=== PATIENT | male | born 1975 | race Caucasian/White ===

== ENCOUNTER 2021-08-03 09:06 | Emergency (ER) | payer BC ==
[~2021-08-03] VITALS: Ht 170.2 cm; Wt 87.0 kg
[2021-08-03 09:58] VITALS: BP 142/92
== END 2021-08-03 12:53 | disposition home or self-care (01) ==
LOC: ER 09:07
DX: M79.672 Pain in left foot (principal); W19.XXXA Unspecified fall, initial encounter; Y93.89 Activity, other specified; Y92.89 Other specified places as the place of occurrence of the external cause; Y99.8 Other external cause status
CPT/HCPCS: 73590; 99283

== ENCOUNTER → 2022-11-22 | Outpatient (CLI) | payer BC ==
[2022-11-22 09:52] LABS: BASOPHILS % (AUTO) 0.8 % (0-1); BILIRUBIN,URINE NEGATIVE (Neg); CLARITY,URINE CLEAR (Clear); COLOR,URINE YELLOW (Yellow); EOSINOPHILS # (AUTO) 0.2 X10'3 (0-0.9); EOSINOPHILS % (AUTO) 3.9 % (0-6); GLUCOSE, URINE NEGATIVE (Neg); HEMATOCRIT 39.7 % (42.0-52.0); HEMOGLOBIN 13.4 g/dl (14.0-17.9); KETONES,URINE NEGATIVE (Neg); LEUKOCYTE ESTERASE ,URINE NEGATIVE (Neg); LYMPHOCYTES % (AUTO) 23.2 % (21-51); MEAN CORPUSCULAR HEMOGLOBIN 31.8 PG (27.0-31.0); MEAN CORPUSCULAR HGB CONC 33.6 g/dL (33.0-36.5); MEAN CORPUSCULAR VOLUME 94.7 FL (78-98); MEAN PLATELET VOLUME 8.3 FL (7.4-10.4); MONOCYTES # (AUTO) 0.4 X10'3 (0-0.9); MONOCYTES % (AUTO) 10.2 % (2-12); NEUTROPHILS # (AUTO) 2.7 X10'3 (1.8-7.7); NEUTROPHILS % (AUTO) 61.9 % (42-75); NITRITES, URINE NEGATIVE (Neg); OCCULT BLOOD,URINE NEGATIVE (Neg); PH,URINE 5.5 (4.8-8.0); PLATELET COUNT 216 X10'3 (140-440); PROTEIN,URINE NEGATIVE (Neg); RED CELL DISTRIBUTION WIDTH 12.3 % (11.5-14.5); UROBILINOGEN,URINE 0.2 E.U/dL (0.2-1.0); WHITE BLOOD COUNT 4.4 X10'3 (4.5-11.0)
[2022-11-22 09:53] LABS: TOTAL PROTEIN,URINE RANDOM 9.1 MG/DL; UA PROTEIN/CREATININE RATIO 0.11 mg/mg Cr (0-0.16)
[2022-11-22 09:58] LABS: UA COLLECTION TYPE CLN CATCH MIDSTREAM
[2022-11-22 10:03] LABS: % IRON SATURATION 28 % (11-46); IRON 90 UG/DL (53-167); TOTAL IRON BINDING CAPACITY 325 UG/DL (259-388)
[2022-11-22 10:34] LABS: ALBUMIN 4.2 G/DL (3.4-5.0); ANION GAP 8 (8-16); BLOOD UREA NITROGEN 26 MG/DL (7-18); BUN/CREATININE RATIO 15.5 (10.0-20.0); CALCIUM 9.5 MG/DL (8.5-10.1); CHLORIDE 100 MMOL/L (99-107); CREATININE 1.68 MG/DL (0.60-1.10); FERRITIN 509 NG/ML (26-388); GLUCOSE 98 MG/DL (70-104); MAGNESIUM 1.8 MG/DL (1.5-2.4); PHOSPHORUS 3.7 MG/DL (2.3-4.5); POTASSIUM 4.5 MMOL/L (3.5-5.1); SODIUM 135 MMOL/L (135-145); TOTAL CARBON DIOXIDE 27.1 MMOL/L (24-32); URIC ACID 6.7 MG/DL (3.5-7.2); eGFR 44 ML/MIN
[2022-11-22 11:14] LABS: HEMOGLOBIN A1C > 12.0 % (4.5-6.2)
[2022-11-23 15:03] LABS: VITAMIN D, 25-HYDROXY 38.2 ng/mL (30.0-100.0)
== END | disposition home or self-care (01) ==
LOC: LAB 08:43
PROVIDERS: ATTEND Nurse Practitioner Adult Health
DX: E11.22 Type 2 diabetes mellitus with diabetic chronic kidney disease (principal); N18.30 Chronic kidney disease, stage 3 unspecified; M10.9 Gout, unspecified; D63.1 Anemia in chronic kidney disease; D50.8 Other iron deficiency anemias; R94.4 Abnormal results of kidney function studies; E83.52 Hypercalcemia; R80.9 Proteinuria, unspecified; E83.40 Disorders of magnesium metabolism, unspecified; R82.79 Other abnormal findings on microbiological examination of urine; N39.0 Urinary tract infection, site not specified
CPT/HCPCS: 36415; 80069; 81003; 82306; 82570; 82728; 83036; 83540; 83550; 83735; 83970; 84156; 84550; 85025

== ENCOUNTER → 2023-01-03 | Outpatient (CLI) | payer BC ==
[2023-01-03 09:39] LABS: ALANINE AMINOTRANSFERASE 47 U/L (12-78); ALBUMIN 3.9 G/DL (3.4-5.0); ALBUMIN/GLOBULIN RATIO 1.1 (1.1-1.5); ALKALINE PHOSPHATASE 67 IU/L (46-116); ANION GAP 8 (8-16); ASPARTATE AMINO TRANSFERASE 37 U/L (10-37); BILIRUBIN,TOTAL 0.3 MG/DL (0.1-1.0); BLOOD UREA NITROGEN 25 MG/DL (7-18); BUN/CREATININE RATIO 14.9 (10.0-20.0); CALCIUM 8.9 MG/DL (8.5-10.1); CHLORIDE 99 MMOL/L (99-107); CHOL/HDL RATIO 3.9 (0.00-4.99); CHOLESTEROL 217 MG/DL (0-200); CREATININE 1.68 MG/DL (0.60-1.10); GLUCOSE 106 MG/DL (70-104); HDL CHOLESTEROL 56 MG/DL (35-60); LDL CHOLESTEROL 113 MG/DL (50-100); POTASSIUM 4.1 MMOL/L (3.5-5.1); SODIUM 132 MMOL/L (135-145); TOTAL CARBON DIOXIDE 25.3 MMOL/L (24-32); TOTAL PROTEIN 7.6 G/DL (6.4-8.2); TRIGLYCERIDES 190 MG/DL (20-135); eGFR 44 ML/MIN
== END | disposition home or self-care (01) ==
LOC: LAB 08:42
PROVIDERS: ATTEND Family Medicine
DX: I12.9 Hypertensive chronic kidney disease with stage 1 through stage 4 chronic kidney disease, or unspecified chronic kidney disease (principal); N18.31 Chronic kidney disease, stage 3a; R73.09 Other abnormal glucose
CPT/HCPCS: 36415; 80053; 80061

== ENCOUNTER 2023-03-03 10:10 | Outpatient (CLI) | payer BC | END 2023-03-03 23:59 | disposition home or self-care (01) | LOC: CARD DIAG 10:10 | PROVIDERS: ATTEND Internal Medicine Interventional Cardiology | DX: I08.8 Other rheumatic multiple valve diseases (principal); R06.02 Shortness of breath | CPT/HCPCS: 93306 ==

== ENCOUNTER 2023-03-06 08:52 | Outpatient (CLI) | payer BC ==
[2023-03-06 09:38] LABS: HEMOGLOBIN A1C 5.3 % (4.5-6.2)
[2023-03-06 09:42] LABS: THYROID STIMULATING HORMONE 2.71 ulU/ml (0.34-4.50)
== END 2023-03-06 23:59 | disposition home or self-care (01) ==
LOC: LAB 08:52
PROVIDERS: ATTEND Family Medicine
DX: R97.20 Elevated prostate specific antigen [PSA] (principal); R73.01 Impaired fasting glucose; R94.6 Abnormal results of thyroid function studies
CPT/HCPCS: 36415; 83036; 84153; 84443

== ENCOUNTER 2023-06-12 11:09 | Outpatient (CLI) | payer BC ==
[2023-06-12 11:41] LABS: BASOPHILS # (AUTO) 0.1 X10'3 (0-0.2); BASOPHILS % (AUTO) 0.7 % (0-1); EOSINOPHILS # (AUTO) 0.2 X10'3 (0-0.9); EOSINOPHILS % (AUTO) 2.1 % (0-6); HEMATOCRIT 38.3 % (42.0-52.0); HEMOGLOBIN 13.1 g/dl (14.0-17.9); LYMPHOCYTES # (AUTO) 0.9 X10'3 (1.1-4.8); LYMPHOCYTES % (AUTO) 10.9 % (21-51); MEAN CORPUSCULAR HEMOGLOBIN 31.6 PG (27.0-31.0); MEAN CORPUSCULAR HGB CONC 34.2 g/dL (33.0-36.5); MEAN CORPUSCULAR VOLUME 92.5 FL (78-98); MEAN PLATELET VOLUME 7.8 FL (7.4-10.4); MONOCYTES # (AUTO) 0.7 X10'3 (0-0.9); NEUTROPHILS # (AUTO) 6.7 X10'3 (1.8-7.7); NEUTROPHILS % (AUTO) 78.3 % (42-75); PLATELET COUNT 230 X10'3 (140-440); RED BLOOD COUNT 4.13 X10'6 (4.70-6.10); RED CELL DISTRIBUTION WIDTH 13.5 % (11.5-14.5); WHITE BLOOD COUNT 8.6 X10'3 (4.5-11.0)
[2023-06-12 11:57] LABS: BILIRUBIN,URINE NEGATIVE (Neg); CLARITY,URINE CLEAR (Clear); COLOR,URINE YELLOW (Yellow); GLUCOSE, URINE NEGATIVE (Neg); KETONES,URINE NEGATIVE (Neg); LEUKOCYTE ESTERASE ,URINE NEGATIVE (Neg); NITRITES, URINE NEGATIVE (Neg); OCCULT BLOOD,URINE NEGATIVE (Neg); PROTEIN,URINE NEGATIVE (Neg); UROBILINOGEN,URINE 0.2 E.U/dL (0.2-1.0)
[2023-06-12 12:01] LABS: HEMOGLOBIN A1C 5.3 % (4.5-6.2)
[2023-06-12 12:01] LABS: TOTAL PROTEIN,URINE RANDOM 12.1 MG/DL; UA PROTEIN/CREATININE RATIO 0.18 mg/mg Cr (0-0.16)
[2023-06-12 12:13] LABS: UA COLLECTION TYPE NON-SPECIFIED
[2023-06-12 12:20] LABS: ALBUMIN 3.9 G/DL (3.4-5.0); ANION GAP 14 (8-16); BLOOD UREA NITROGEN 26 MG/DL (7-18); BUN/CREATININE RATIO 16.7 (10.0-20.0); CALCIUM 9.1 MG/DL (8.5-10.1); CHLORIDE 100 MMOL/L (99-107); CREATININE 1.56 MG/DL (0.60-1.10); FERRITIN 518 NG/ML (26-388); GLUCOSE 92 MG/DL (70-104); MAGNESIUM 1.7 MG/DL (1.5-2.4); POTASSIUM 4.6 MMOL/L (3.5-5.1); SODIUM 138 MMOL/L (135-145); TOTAL CARBON DIOXIDE 24.2 MMOL/L (24-32); eGFR 48 ML/MIN
[2023-06-12 12:43] LABS: % IRON SATURATION 19 % (11-46); IRON 60 UG/DL (53-167); TOTAL IRON BINDING CAPACITY 319 UG/DL (259-388)
== END 2023-06-12 23:59 | disposition home or self-care (01) ==
LOC: LAB 11:09
PROVIDERS: ATTEND Family Medicine
DX: E11.22 Type 2 diabetes mellitus with diabetic chronic kidney disease (principal); N18.30 Chronic kidney disease, stage 3 unspecified; R94.4 Abnormal results of kidney function studies; E83.40 Disorders of magnesium metabolism, unspecified; N39.0 Urinary tract infection, site not specified; D50.8 Other iron deficiency anemias; E83.52 Hypercalcemia; R80.9 Proteinuria, unspecified; D63.1 Anemia in chronic kidney disease
CPT/HCPCS: 36415; 80069; 81003; 82306; 82570; 82728; 83036; 83540; 83550; 83735; 83970; 84156; 85025; 87088

== ENCOUNTER 2023-11-13 08:25 | Outpatient (CLI) | payer BC ==
[2023-11-13 08:53] LABS: BILIRUBIN,URINE NEGATIVE (Neg); CLARITY,URINE CLEAR (Clear); COLOR,URINE YELLOW (Yellow); GLUCOSE, URINE NEGATIVE (Neg); KETONES,URINE NEGATIVE (Neg); LEUKOCYTE ESTERASE ,URINE NEGATIVE (Neg); NITRITES, URINE NEGATIVE (Neg); OCCULT BLOOD,URINE NEGATIVE (Neg); PROTEIN,URINE NEGATIVE (Neg); UROBILINOGEN,URINE 0.2 E.U/dL (0.2-1.0)
[2023-11-13 08:57] LABS: BASOPHILS # (AUTO) 0.1 X10'3 (0-0.2); BASOPHILS % (AUTO) 1.1 % (0-1); EOSINOPHILS # (AUTO) 0.3 X10'3 (0-0.9); EOSINOPHILS % (AUTO) 5.5 % (0-6); HEMATOCRIT 38.1 % (42.0-52.0); HEMOGLOBIN 13.1 g/dl (14.0-17.9); LYMPHOCYTES # (AUTO) 1.3 X10'3 (1.1-4.8); LYMPHOCYTES % (AUTO) 24.3 % (21-51); MEAN CORPUSCULAR HEMOGLOBIN 32.1 PG (27.0-31.0); MEAN CORPUSCULAR HGB CONC 34.3 g/dL (33.0-36.5); MEAN CORPUSCULAR VOLUME 93.5 FL (78-98); MEAN PLATELET VOLUME 8.1 FL (7.4-10.4); MONOCYTES # (AUTO) 0.5 X10'3 (0-0.9); MONOCYTES % (AUTO) 10.4 % (2-12); NEUTROPHILS # (AUTO) 3.1 X10'3 (1.8-7.7); NEUTROPHILS % (AUTO) 58.7 % (42-75); PLATELET COUNT 218 X10'3 (140-440); RED BLOOD COUNT 4.08 X10'6 (4.70-6.10); RED CELL DISTRIBUTION WIDTH 12.6 % (11.5-14.5); WHITE BLOOD COUNT 5.2 X10'3 (4.5-11.0)
[2023-11-13 08:58] LABS: UA COLLECTION TYPE CLN CATCH MIDSTREAM
[2023-11-13 09:13] LABS: TOTAL PROTEIN,URINE RANDOM 6.4 MG/DL; UA PROTEIN/CREATININE RATIO 0.09 mg/mg Cr (0-0.16)
[2023-11-13 09:31] LABS: ALBUMIN 4.1 G/DL (3.4-5.0); ANION GAP 8 (8-16); BLOOD UREA NITROGEN 32 MG/DL (7-18); BUN/CREATININE RATIO 18.3 (10.0-20.0); CALCIUM 9.3 MG/DL (8.5-10.1); CHLORIDE 102 MMOL/L (99-107); CREATININE 1.75 MG/DL (0.60-1.10); FERRITIN 430 NG/ML (26-388); GLUCOSE 84 MG/DL (70-104); MAGNESIUM 1.7 MG/DL (1.5-2.4); PHOSPHORUS 4.4 MG/DL (2.3-4.5); POTASSIUM 4.3 MMOL/L (3.5-5.1); SODIUM 136 MMOL/L (135-145); TOTAL CARBON DIOXIDE 26.4 MMOL/L (24-32); eGFR 42 ML/MIN
[2023-11-13 09:39] LABS: % IRON SATURATION 22 % (11-46); IRON 77 UG/DL (53-167); TOTAL IRON BINDING CAPACITY 348 UG/DL (259-388)
[2023-11-14 08:14] LABS: VITAMIN D, 25-HYDROXY 27.7 ng/mL (30.0-100.0)
== END 2023-11-13 23:59 | disposition home or self-care (01) ==
LOC: RAD 08:25
PROVIDERS: ATTEND Radiology Diagnostic Radiology
DX: N18.30 Chronic kidney disease, stage 3 unspecified (principal); D63.1 Anemia in chronic kidney disease; R94.4 Abnormal results of kidney function studies; E83.40 Disorders of magnesium metabolism, unspecified; E83.30 Disorder of phosphorus metabolism, unspecified; N39.0 Urinary tract infection, site not specified; D50.8 Other iron deficiency anemias; E61.1 Iron deficiency; E83.52 Hypercalcemia; E55.9 Vitamin D deficiency, unspecified; R80.9 Proteinuria, unspecified
CPT/HCPCS: 36415; 80069; 81003; 82306; 82570; 82728; 83540; 83550; 83735; 83970; 84156; 85025

== ENCOUNTER 2024-01-09 12:16 | Outpatient (CLI) | payer BC ==
[2024-01-09 13:13] LABS: BILIRUBIN,URINE NEGATIVE (Neg); CLARITY,URINE CLEAR (Clear); COLOR,URINE STRAW (Yellow); GLUCOSE, URINE NEGATIVE (Neg); KETONES,URINE NEGATIVE (Neg); LEUKOCYTE ESTERASE ,URINE NEGATIVE (Neg); NITRITES, URINE NEGATIVE (Neg); OCCULT BLOOD,URINE NEGATIVE (Neg); PROTEIN,URINE NEGATIVE (Neg); UROBILINOGEN,URINE 0.2 E.U/dL (0.2-1.0)
[2024-01-09 13:16] LABS: BASOPHILS # (AUTO) 0.1 X10'3 (0-0.2); BASOPHILS % (AUTO) 0.9 % (0-1); EOSINOPHILS # (AUTO) 0.2 X10'3 (0-0.9); HEMATOCRIT 39.5 % (42.0-52.0); LYMPHOCYTES # (AUTO) 1.2 X10'3 (1.1-4.8); LYMPHOCYTES % (AUTO) 20.1 % (21-51); MEAN CORPUSCULAR HGB CONC 32.8 g/dL (33.0-36.5); MEAN CORPUSCULAR VOLUME 94.6 FL (78-98); MEAN PLATELET VOLUME 8.8 FL (7.4-10.4); MONOCYTES # (AUTO) 0.5 X10'3 (0-0.9); MONOCYTES % (AUTO) 8.8 % (2-12); NEUTROPHILS % (AUTO) 66.2 % (42-75); PLATELET COUNT 217 X10'3 (140-440); RED BLOOD COUNT 4.18 X10'6 (4.70-6.10); RED CELL DISTRIBUTION WIDTH 12.1 % (11.5-14.5); WHITE BLOOD COUNT 6.1 X10'3 (4.5-11.0)
[2024-01-09 13:27] LABS: % IRON SATURATION 27 % (11-46); IRON 83 UG/DL (53-167); TOTAL IRON BINDING CAPACITY 307 UG/DL (259-388)
[2024-01-09 13:32] LABS: UA COLLECTION TYPE NON-SPECIFIED
[2024-01-09 13:51] LABS: ALBUMIN 4.1 G/DL (3.4-5.0); ANION GAP 6 (8-16); BLOOD UREA NITROGEN 24 MG/DL (7-18); BUN/CREATININE RATIO 12.2 (10.0-20.0); CALCIUM 9.1 MG/DL (8.5-10.1); CHLORIDE 100 MMOL/L (99-107); CREATININE 1.96 MG/DL (0.60-1.10); FERRITIN 494 NG/ML (26-388); GLUCOSE 87 MG/DL (70-104); MAGNESIUM 1.8 MG/DL (1.5-2.4); PHOSPHORUS 3.7 MG/DL (2.3-4.5); POTASSIUM 4.2 MMOL/L (3.5-5.1); SODIUM 134 MMOL/L (135-145); TOTAL CARBON DIOXIDE 27.6 MMOL/L (24-32); eGFR 37 ML/MIN
[2024-01-12 09:11] LABS: CREATININE, URINE 57.9 mg/dL (Not Estab.); MICROALBUMIN,U,RANDOM 34.9 ug/mL (Not Estab.)
[2024-01-13 05:56] LABS: VITAMIN D, 25-HYDROXY 33.3 ng/mL (30.0-100.0)
[2024-01-16] MEDS ORDERED: ATEN-169 PO (16:04)
[2024-01-16] MEDS ORDERED: LISI40TA13 PO (16:04)
[2024-01-16] MEDS ORDERED: ATOR40TA PO (16:04)
[2024-01-16] MEDS ORDERED: AMLO-708 PO (16:04)
== END 2024-01-09 23:59 | disposition home or self-care (01) ==
LOC: RAD 12:16
PROVIDERS: ATTEND Internal Medicine Critical Care Medicine
DX: N18.30 Chronic kidney disease, stage 3 unspecified (principal); D63.1 Anemia in chronic kidney disease; R94.4 Abnormal results of kidney function studies; E83.40 Disorders of magnesium metabolism, unspecified; N39.0 Urinary tract infection, site not specified; D50.8 Other iron deficiency anemias; E83.52 Hypercalcemia; R80.9 Proteinuria, unspecified
CPT/HCPCS: 36415; 80069; 81003; 82043; 82306; 82570; 82728; 83540; 83550; 83735; 83970; 85025; 87088

== ENCOUNTER → 2024-01-17 | Day surgery (SDC) | payer BC ==
[~2024-01-17] VITALS: Ht 170.2 cm; Wt 83.9 kg
[2024-01-17] VITALS (13 sets, daily range): BP systolic 112–147; BP diastolic 64–94; PULSE 63–100; RESP 12–23; TEMP 98.3; O2SAT 93–100
[~2024-01-17] MED LIST: AMLO-708 PO; ATEN-169 PO; ATOR40TA PO; BUPIVAcaine 2.5mg/ml inj 50ml vial (contains preservative) ONE; DOCUMENT DATE & TIME OF BETA-BLOCKER PO ONE; LIDOcaine 2% (20mg/ml) 5ml vial ONE; LISI40TA13 PO; dexamethasone sod phosphate 4mg/ml inj. ONE; enalaprilat dihydrate 2.5mg/2ml vial IV PRN; fentaNYL /PF 50mcg/ml 5ml ampule ONE; labetalol 20mg/4ml (5mg/ml) syringe IV PRN; meperidine/PF 25mg/ml syringe IV PRN; midazolam 1 mg/ML 2ml injection ONE; morphine 2 MG/ML inj. syringe IV PRN; ondansetron/PF 4mg/2ml inj IV PRN; ondansetron/PF 4mg/2ml inj ONE; proCHLORperazine 10 MG/2 ml inj IV PRN; propofol inj 20 ML IV ONE; ringers solution, lacted 1,000 ML IV SCH; rocuronium 10mg/ml inj IV ONE; sevoflurane 250ml liquid IH ONE
[2024-01-17] MEDS: famotidine 20mg tablet PO ONE (07:13)
[2024-01-17] MEDS: ceFAZolin 2gm in dextrose, iso 50 ML IV ONE (07:14)
[2024-01-17] MEDS: ringers solution, lacted 1,000 ML IV SCH (07:14)
[2024-01-17] MEDS: BUPIVAcaine 2.5mg/ml inj 50ml vial (contains preservative) SQ ONE (10:26)
[2024-01-17] MEDS: meperidine/PF 25mg/ml syringe IV PRN (11:16)
[2024-01-17] MEDS: morphine 4 MG/ML inj SYRINge IV PRN (11:22)
[2024-01-17] MEDS: HYDROcodone/acetaminophen 10/325mg tab PO ONE (12:20)
== END | disposition home or self-care (01) ==
LOC: PRE-OP 06:57
PROVIDERS: ATTEND Surgery
DX: K40.20 Bilateral inguinal hernia, without obstruction or gangrene, not specified as recurrent (principal); I10 Essential (primary) hypertension; E78.5 Hyperlipidemia, unspecified; Z79.899 Other long term (current) drug therapy
CPT/HCPCS: 49650; 82948; 93005; C1781; J0131; J0690; J1100; J2175; J2250; J2270; J2405; J2704; J3010; J3490; J7030; J7120; S2900; Z7506; Z7508; Z7512; A4215; A4618

== ENCOUNTER 2024-03-30 12:43 | Outpatient (CLI) | payer BC ==
[~2024-03-30 12:43] MED LIST changes: -BUPIVAcaine 2.5mg/ml inj 50ml vial (contains preservative) ONE; -DOCUMENT DATE & TIME OF BETA-BLOCKER PO ONE; -LIDOcaine 2% (20mg/ml) 5ml vial ONE; -dexamethasone sod phosphate 4mg/ml inj. ONE; -enalaprilat dihydrate 2.5mg/2ml vial IV PRN; -fentaNYL /PF 50mcg/ml 5ml ampule ONE; -labetalol 20mg/4ml (5mg/ml) syringe IV PRN; -meperidine/PF 25mg/ml syringe IV PRN; -midazolam 1 mg/ML 2ml injection ONE; -morphine 2 MG/ML inj. syringe IV PRN; -ondansetron/PF 4mg/2ml inj IV PRN; -ondansetron/PF 4mg/2ml inj ONE; -proCHLORperazine 10 MG/2 ml inj IV PRN; -propofol inj 20 ML IV ONE; -ringers solution, lacted 1,000 ML IV SCH; -rocuronium 10mg/ml inj IV ONE; -sevoflurane 250ml liquid IH ONE
== END 2024-03-30 23:59 | disposition home or self-care (01) ==
LOC: US 12:43
PROVIDERS: ATTEND Surgery
DX: N50.3 Cyst of epididymis (principal); N43.2 Other hydrocele; N50.89 Other specified disorders of the male genital organs; D40.12 Neoplasm of uncertain behavior of left testis
CPT/HCPCS: 76870; 93976

== ENCOUNTER 2024-05-21 12:02 | Outpatient (CLI) | payer BC ==
[2024-05-21 12:39] LABS: BILIRUBIN,URINE NEGATIVE (Neg); CLARITY,URINE CLEAR (Clear); COLOR,URINE YELLOW (Yellow); GLUCOSE, URINE NEGATIVE (Neg); KETONES,URINE NEGATIVE (Neg); LEUKOCYTE ESTERASE ,URINE NEGATIVE (Neg); NITRITES, URINE NEGATIVE (Neg); OCCULT BLOOD,URINE NEGATIVE (Neg); PROTEIN,URINE NEGATIVE (Neg); UROBILINOGEN,URINE 0.2 E.U/dL (0.2-1.0)
[2024-05-21 12:45] LABS: UA COLLECTION TYPE NON-SPECIFIED
[2024-05-21 12:51] LABS: BASOPHILS # (AUTO) 0.1 X10'3 (0-0.2); BASOPHILS % (AUTO) 1.2 % (0-1); EOSINOPHILS # (AUTO) 0.2 X10'3 (0-0.9); EOSINOPHILS % (AUTO) 5.3 % (0-6); HEMATOCRIT 38.8 % (42.0-52.0); HEMOGLOBIN 13.2 g/dl (14.0-17.9); HEMOGLOBIN A1C 5.4 % (4.5-6.2); LYMPHOCYTES % (AUTO) 21.8 % (21-51); MEAN CORPUSCULAR HEMOGLOBIN 30.8 PG (27.0-31.0); MEAN CORPUSCULAR VOLUME 90.5 FL (78-98); MEAN PLATELET VOLUME 9.1 FL (7.4-10.4); MONOCYTES # (AUTO) 0.6 X10'3 (0-0.9); MONOCYTES % (AUTO) 13.1 % (2-12); NEUTROPHILS # (AUTO) 2.6 X10'3 (1.8-7.7); NEUTROPHILS % (AUTO) 58.6 % (42-75); PLATELET COUNT 190 X10'3 (140-440); RED BLOOD COUNT 4.28 X10'6 (4.70-6.10); RED CELL DISTRIBUTION WIDTH 12.9 % (11.5-14.5); WHITE BLOOD COUNT 4.5 X10'3 (4.5-11.0)
[2024-05-21 13:01] LABS: ALBUMIN 4.1 G/DL (3.4-5.0); ANION GAP 6 (8-16); BLOOD UREA NITROGEN 27 MG/DL (7-18); BUN/CREATININE RATIO 14.4 (10.0-20.0); CALCIUM 9.3 MG/DL (8.5-10.1); CHLORIDE 102 MMOL/L (99-107); CREATININE 1.88 MG/DL (0.60-1.10); FERRITIN 398 NG/ML (26-388); GLUCOSE 106 MG/DL (70-104); PHOSPHORUS 3.8 MG/DL (2.3-4.5); POTASSIUM 4.4 MMOL/L (3.5-5.1); SODIUM 136 MMOL/L (135-145); eGFR 39 ML/MIN
[2024-05-21 13:05] LABS: TOTAL PROTEIN,URINE RANDOM 13.1 MG/DL; UA PROTEIN/CREATININE RATIO 0.12 mg/mg Cr (0-0.16)
[2024-05-21 13:17] LABS: % IRON SATURATION 26 % (11-46); IRON 89 UG/DL (53-167); TOTAL IRON BINDING CAPACITY 344 UG/DL (259-388)
== END 2024-05-21 23:59 | disposition home or self-care (01) ==
LOC: RAD 12:02
PROVIDERS: ATTEND Internal Medicine Critical Care Medicine
DX: E11.22 Type 2 diabetes mellitus with diabetic chronic kidney disease (principal); N18.30 Chronic kidney disease, stage 3 unspecified; D63.1 Anemia in chronic kidney disease; R94.4 Abnormal results of kidney function studies; N39.0 Urinary tract infection, site not specified; D50.8 Other iron deficiency anemias; E55.9 Vitamin D deficiency, unspecified; R80.9 Proteinuria, unspecified; E16.1 Other hypoglycemia
CPT/HCPCS: 36415; 80069; 81003; 82570; 82652; 82728; 83036; 83540; 83550; 83735; 83970; 84156; 85025

== ENCOUNTER 2024-12-28 08:49 | Outpatient (CLI) | payer BC ==
[~2024-12-28 08:49] MED LIST changes: -LISI40TA13 PO; +LISI40TA20 PO
[2024-12-28 09:24] LABS: LEUKOCYTE ESTERASE ,URINE NEGATIVE (Neg); NITRITES, URINE NEGATIVE (Neg); OCCULT BLOOD,URINE NEGATIVE (Neg)
[2024-12-28 09:28] LABS: UA COLLECTION TYPE NON-SPECIFIED
[2024-12-28 09:29] LABS: MEAN PLATELET VOLUME 8.5 FL (7.4-10.4); RED CELL DISTRIBUTION WIDTH 13.3 % (11.5-14.5)
[2024-12-28 09:37] LABS: CREATININE,URINE RANDOM 62.0 MG/DL; TOTAL PROTEIN,URINE RANDOM 19.7 MG/DL; UA PROTEIN/CREATININE RATIO 0.31 mg/mg Cr (0-0.16)
[2024-12-28 09:55] LABS: % IRON SATURATION 20 % (11-46)
[2024-12-28 10:01] LABS: CREATININE 1.92 MG/DL (0.60-1.10); PHOSPHORUS 3.3 MG/DL (2.3-4.5); TOTAL CARBON DIOXIDE 25.2 MMOL/L (24-32); eGFR 38 ML/MIN
[2024-12-29 11:12] LABS: VITAMIN D, 25-HYDROXY 33.5 ng/mL (30.0-100.0)
== END 2024-12-28 23:59 | disposition home or self-care (01) ==
LOC: RAD 08:49
PROVIDERS: ATTEND Internal Medicine Critical Care Medicine
DX: N18.30 Chronic kidney disease, stage 3 unspecified (principal); D63.1 Anemia in chronic kidney disease; N39.0 Urinary tract infection, site not specified; Z00.00 Encounter for general adult medical examination without abnormal findings; E55.9 Vitamin D deficiency, unspecified; R80.9 Proteinuria, unspecified; D50.8 Other iron deficiency anemias
CPT/HCPCS: 36415; 80069; 81003; 82306; 82570; 82728; 83540; 83550; 83735; 83970; 84156; 85025; 87088